=== PATIENT | female | born 1945 | race Caucasian/White ===

== ENCOUNTER → 2017-11-05 | Outpatient (CLI) | payer MEDICARE, MEDICAID ==
--- NOTE | 2017-11-05 11:33 | Diagnostic Imaging Report ---
EXAM: DXA BONE DENSITY INDICATIONS: Osteoporosis COMPARISON: 10/28/2016 FINDINGS: Proximal left femur bone mineral density (BMD) (g/cm2):0.72 Femur T-score (standard deviation relative to young adult mean BMD): -1.8 Femur Z-score (standard deviation relative to age-matched control group):-0.2 Lumbar bone mineral density (BMD) (g/cm2):0.81 Lumbar T-score (standard deviation relative to young adult mean BMD): -2.1 Lumbar Z-score (standard deviation relative to age-matched control group):0.1 Change since prior exam (%): Femur:0.6% Spine:-0.9% CONCLUSION: Bone mineral density in the left femur is classified as osteopenia/low bone mass as evidenced by bone mineral densities of both the left hip and lumbar spine. Fracture risk is moderate. WHO Fracture Risk Assessment Tool (FRAX) with predicated 10-year fracture risk of a major osteoporotic fracture of 11% and hip fracture of 1.8%. World Health Organization Classification: *The Z-score is provided for informational purposes. The T-score is preferable for clinical decisions. When comparing exams, a change of >4% is considered statistically significant. SUGGESTED RECOMMENDATIONS: Normal \T\ Osteopenia:Consideration should be given to use of calcium supplementation, daily multiple vitamins and adequate exercise, as preventive measures against osteoporosis, if clinically indicated. Osteoporosis \T\ Severe Osteoporosis:In addition to the above, consideration should be given to medical therapy against osteoporosis, if clinically indicated. Dictated by: Pillo Flowers M.D. on 11/05/2017 at 11:38 Electronically approved by: Pillo Flowers M.D. on 11/05/2017 at 11:38
== END ==
LOC: MAMMO 08:18
PROVIDERS: ATTEND Internal Medicine
DX: Z12.31 Encounter for screening mammogram for malignant neoplasm of breast (principal); Z13.820 Encounter for screening for osteoporosis
CPT/HCPCS: 77067; 77080

== ENCOUNTER → 2018-11-25 | Outpatient (CLI) | payer MEDICARE, MEDICAID ==
--- NOTE | 2018-11-25 08:34 | Diagnostic Imaging Report ---
Left ankle, 3 views Clinical indication: Left ankle pain status post fall Comparison: None Findings: Radiographic evidence of fracture or dislocation. The ankle mortise is intact. There is moderate lateral malleolar soft tissue swelling. A plantar calcaneal bone spur is present. Impression: No radiographic evidence of acute fracture or dislocation of the left ankle. Moderate lateral malleolar soft tissue swelling. Signed by: Gilbert Brooks MD on 11/25/2018 8:30 AM
== END ==
LOC: RAD 07:18
PROVIDERS: ATTEND Internal Medicine
DX: M25.572 Pain in left ankle and joints of left foot (principal)

== ENCOUNTER → 2020-07-09 | Outpatient (CLI) | payer MEDICARE, MEDICAID | LOC: LAB 07:05 | PROVIDERS: ATTEND Internal Medicine | DX: M25.562 Pain in left knee (principal); W19.XXXA Unspecified fall, initial encounter ==

== ENCOUNTER → 2021-04-17 | Outpatient (CLI) | payer MEDICARE | LOC: RAD 11:19 | PROVIDERS: ATTEND Internal Medicine | DX: M25.561 Pain in right knee (principal) ==

== ENCOUNTER → 2021-06-27 | Outpatient (CLI) | payer MEDICARE | LOC: MRI 10:10 | PROVIDERS: ATTEND Internal Medicine | DX: M25.561 Pain in right knee (principal); M17.11 Unilateral primary osteoarthritis, right knee; M25.761 Osteophyte, right knee ==

== ENCOUNTER → 2021-09-10 | Outpatient (CLI) | payer MEDICARE | LOC: CT 07:11 | PROVIDERS: ATTEND Internal Medicine | DX: R41.3 Other amnesia (principal); G45.1 Carotid artery syndrome (hemispheric) | CPT/HCPCS: 70450; 93880 ==